=== PATIENT | male | born 1980 | race Caucasian/White ===

== ENCOUNTER → 2018-12-19 13:04 | Outpatient (CLI) | payer OTHER, SELFPAY ==
--- NOTE | 2018-12-19 | DI.MRI.S_ITS ---
PROCEDURE: MR HEAD/BRAIN WO/W CON INDICATIONS: DISORDER OF BONE TECHNIQUE: Noncontrast axial T1 spin echo, axial T2 fast spin echo, sagittal and axial FLAIR, coronal T2 fast spin echo, axial gradient echo, axial diffusion and ADC through the brain. After the administration of contrast, axial and coronal 3D VIBE or T1 spin echo with fat saturation through the brain. COMPARISON: None. FINDINGS: Image quality: Excellent. CSF Spaces: Basal cisterns are patent. No extra-axial fluid collections. Ventricles are normal in size and shape. Brain: No midline shift. No intracranial bleeds or masses. No abnormal intracranial enhancement. The brainstem appears normal. Diffusion-weighted images demonstrate no acute ischemic insults. No chronic ischemic insults. Normal intravascular flow voids are present. Skull and face: Calvarial marrow is normal in signal. No abnormal signal or enhancement involving the right calvarium Orbits appear normal. Sinuses: Sinuses and mastoids appear clear. IMPRESSION: No abnormal skull marrow enhancement or signal abnormality. Overall, grossly unremarkable examination. No abnormal intracranial enhancement. Dictated by: Sergio Mac M.D. on 12/19/2018 at 14:31 Approved by: Sergio Mac M.D. on 12/19/2018 at 14:38
== END ==
PROVIDERS: Visit Provider Radiology Diagnostic Radiology
DX: M89.9 Disorder of bone, unspecified (principal)
CPT/HCPCS: 70553; A9579

== ENCOUNTER → 2020-09-10 08:42 | Outpatient (CLI) | payer OTHER, SELFPAY ==
--- NOTE | 2020-09-10 | DI.MRI.S_ITS ---
PROCEDURE: MR HIP LT W CON INDICATIONS: Other specified joint disorders, unspecified hip TECHNIQUE: After the administration of 10 mL of dilute intra-articular Gadolinium contrast, coronal STIR of the bony pelvis; coronal and oblique axial T1 spin echo with fat saturation, axial T2 fast spin echo with fat saturation, sagittal T1 spin echo with and without fat saturation of the involved hip. COMPARISON: None. FINDINGS: Image quality: Excellent. Bones and joints: Bone marrow of the pelvic ring and proximal femurs show normal signal throughout. Prominence of left femoral head neck junction is seen which can be in seen in the case of cam type femoral acetabular impingement. No intraosseous lesions or fractures. No avascular necrosis of the femoral head. The visualized lower lumbar spine appears normally aligned. The ligamental, neck, and labral plicae appear normal where visualized. Tendons and ligaments: The gluteus medius and minimus tendons appear intact, without associated muscle atrophy. The nearby proximal iliotibial band also appears intact. The iliopsoas tendon appears intact, without adjacent bursal fluid collections or evidence for impingement syndrome. The origin of the hamstring tendon is intact at the ischial tuberosity, as well as the associated sacrotuberous ligament. The straight and reflected heads of the rectus femoris muscle origin appear intact, as well as the conjoint tendon. The ligamentum teres appears intact where visualized. Labrum and cartilage: There is focal area of signal abnormality and contrast extension involving superior anterior labrum concerning for focal superior anterior left hip labral tear. Cartilage surface of the femoral head appears of normal thickness. No paralabral cysts. The alpha angle of the femur is within normal limits at less than 55 degrees. Soft tissues: Visualized muscles demonstrate normal bulk and internal signal. Quadratus femoris muscle demonstrates no internal edema to suggest ischiofemoral impingement. The proximal sciatic neurovascular bundle appears normal adjacent to the hamstring tendons. No free pelvic fluid. Bladder wall thickness is normal. Genitourinary structures and bowel loops appear normal where visualized. IMPRESSION: 1. Finding is suggestive of focal superior anterior left hip labral tear. 2. Prominence of left femoral head neck junction which can be seen in the case of CAM type femoral acetabular impingement. No marrow edema. No evidence of avascular necrosis of femoral head. Dictated by: Pepe Guajardo M.D. on 09/10/2020 at 11:03 Approved by: Pepe Guajardo M.D. on 09/10/2020 at 11:12
--- NOTE | 2020-09-10 | DI.RAD.S_ITS ---
PROCEDURE: FL HIP INJECTION MR/CT LT INDICATIONS: Other specified joint disorders, unspecified hip TECHNIQUE: The indications, alternatives, benefits, risks, and complications of the procedure were explained to the patient. Written informed consent was obtained and placed in the chart. The hip was examined fluoroscopically with the legs fixed in slight internal rotation, and a site for needle placement chosen for entry into the hip joint from an anterior approach. Care was taken to locate the common femoral artery and vein beforehand. The skin was prepped and draped in a sterile fashion, and 1% Lidocaine infiltrated from skin down to joint capsule. A spinal needle was inserted into the joint, and a small amount of iodinated contrast media injected to confirm intra-articular placement of the needle tip. This was followed by approximately 10 mL dilute solution of a gadolinium containing MR contrast agent. The needle was removed and a dressing was applied. The patient was given postprocedural instructions and sent to the MR suite for imaging. COMPARISON: [facility], , MR HIP LT W CON, 09/10/2020, 9:28. FINDINGS: A single fluoroscopic spot image demonstrates intra-articular location of injected iodinated contrast. IMPRESSION: Successful fluoroscopically guided administration of dilute Gadolinium solution into the hip joint for MR arthrogram. Dictated by: Lei Pedersen M.D. on 09/10/2020 at 10:41 Approved by: Lei Pedersen M.D. on 09/10/2020 at 10:43
== END ==
PROVIDERS: PCP Orthopaedic Surgery; Referring Provider Orthopaedic Surgery; Visit Provider Orthopaedic Surgery
DX: M25.852 Other specified joint disorders, left hip (principal)
CPT/HCPCS: 27093; 73722; 77002